=== PATIENT | female | born 1980 | race Caucasian/White ===

== ENCOUNTER 2021-05-20 09:46 | Emergency (ER) | payer SELFPAY ==
[~2021-05-20] VITALS: Ht 152.4 cm; Wt 61.0 kg
[2021-05-20] MEDS ORDERED: TETANUS, DIPHTHERIA, PERTUSSIS VAC/PF 0.5ML (>10YR OLD) IM ONE (10:30)
[2021-05-20] MEDS ORDERED: ACETAMINOPHEN 500MG TABLET PO ONE (10:30)
[2021-05-20] MEDS ORDERED: IBUP-2029 MT (12:55)
[2021-05-20 13:06] VITALS: BP 158/90
== END 2021-05-20 13:08 | disposition home or self-care (01) ==
LOC: ER 09:46
DX: S09.8XXA Other specified injuries of head, initial encounter (principal); W22.8XXA Striking against or struck by other objects, initial encounter; R03.0 Elevated blood-pressure reading, without diagnosis of hypertension; Y93.G3 Activity, cooking and baking; Y92.010 Kitchen of single-family (private) house as the place of occurrence of the external cause
CPT/HCPCS: 90471; 90715; 99284